=== PATIENT | female | born 1955 ===

== ENCOUNTER → 2024-03-18 06:26 | Day surgery (SDC) | payer MEDICARE, SELFPAY | LOC: GI 06:26 | PROVIDERS: ATTENDING PHYSICIAN Internal Medicine Gastroenterology | DX: Z12.11 Encounter for screening for malignant neoplasm of colon (principal); D12.5 Benign neoplasm of sigmoid colon; K64.0 First degree hemorrhoids; K62.89 Other specified diseases of anus and rectum | CPT/HCPCS: 45380; 88305 ==